=== PATIENT | female | born 1980 | race African-American/Black ===

== ENCOUNTER 2021-05-15 10:12 | Emergency (ER) | payer BC ==
[~2021-05-15] VITALS: Ht 165.1 cm; Wt 74.8 kg
--- NOTE | 2021-05-15 11:18 | NUR ---
at bedside for assessment
[2021-05-15] MEDS ORDERED: HYDROCODONE/APAP 5-325MG TABLET PO ONE (11:30)
[2021-05-15] MEDS ORDERED: HYDROCODONE/APAP 5-325MG TABLET ONE (11:42)
[2021-05-15] MEDS ORDERED: LIDO30AD10 TD (13:04)
[2021-05-15] MEDS ORDERED: BENZ-13 PO (13:04)
[2021-05-15] MEDS ORDERED: HYDR-4209 PO (13:04)
--- NOTE | 2021-05-15 13:38 | NUR ---
DISCHARGE INSTRUCTIONS RENDERED R/T COVID QUARANTEEN PRECAUTION AND PRESCRIPTION MEDICATIONS.
[2021-05-15 13:40] VITALS: BP 127/90
== END 2021-05-15 13:40 | disposition home or self-care (01) ==
LOC: ER 10:12
DX: U07.1 COVID-19 (principal); J20.8 Acute bronchitis due to other specified organisms; S22.32XA Fracture of one rib, left side, initial encounter for closed fracture; W01.198A Fall on same level from slipping, tripping and stumbling with subsequent striking against other object, initial encounter; Y93.E1 Activity, personal bathing and showering; Y92.091 Bathroom in other non-institutional residence as the place of occurrence of the external cause; Z88.0 Allergy status to penicillin
CPT/HCPCS: 71101; A4663